=== PATIENT | male | born 1955 | race African-American/Black ===

== ENCOUNTER → 2018-08-08 | Outpatient (CLI) | payer BC | LOC: RAD 13:18 | DX: M47.816 Spondylosis without myelopathy or radiculopathy, lumbar region (principal) ==

== ENCOUNTER → 2019-06-25 | Outpatient (CLI) | payer BC | LOC: ULTRA 10:07 | DX: H53.8 Other visual disturbances (principal); G45.9 Transient cerebral ischemic attack, unspecified ==

== ENCOUNTER → 2019-08-31 | Outpatient (CLI) | payer BC | LOC: LAB 10:30 | PROVIDERS: ATTEND Nurse Practitioner | DX: R05 Cough (principal); Z20.828 Contact with and (suspected) exposure to other viral communicable diseases; R50.9 Fever, unspecified ==

== ENCOUNTER → 2020-03-21 | Outpatient (CLI) | payer BC | LOC: LAB 13:12 | PROVIDERS: ATTEND Nurse Practitioner | DX: Z20.828 Contact with and (suspected) exposure to other viral communicable diseases (principal) ==